=== PATIENT | male | born 1960 | race Caucasian/White ===

== ENCOUNTER → 2021-04-03 10:10 | Outpatient (CLI) | payer MEDICARE, SELFPAY ==
[2021-04-03 20:12] LABS: SARS-CoV-2 RNA PCR Negative
== END ==
PROVIDERS: PCP Family Medicine
DX: R68.89 Other general symptoms and signs (principal); Z20.822 Contact with and (suspected) exposure to COVID-19
CPT/HCPCS: C9803; U0003; U0005

== ENCOUNTER → 2021-08-29 02:41 | Outpatient (CLI) | payer MEDICARE, SELFPAY ==
[2021-08-30 15:56] LABS: SARS-CoV-2 RNA PCR Positive
== END ==
PROVIDERS: PCP Family Medicine; Visit Provider Family Medicine
DX: U07.1 COVID-19 (principal)
CPT/HCPCS: C9803; U0003; U0005

== ENCOUNTER 2024-03-29 07:28 | Emergency (ER) | payer MEDICARE, SELFPAY ==
--- NOTE | ~2024-03-29 | XR_ITS ---
EXAMINATION: XR ankle LT min 3V DATE: 03/29/2024 08:13 INDICATION: Left ankle injury. TECHNIQUE: 4 views of left ankle were obtained. COMPARISON: None. FINDINGS: Bone alignment is normal. No fracture. There is heterotopic ossification distal to medial m alleolus, likely chronic. There is mild midfoot osteoarthritis. There are enthesophytes at the physical therapy aides teacher ior and plantar aspects of calcaneal tuberosity. There is ankle soft tissue swelling. IMPRESSION: 1. Mild midfoot osteoarthritis. Reviewed, dictated and finalized at location A.
--- NOTE | ~2024-03-29 | US_ITS ---
EXAMINATION: US venous doppler [facility] DATE: 03/29/2024 08:29 INDICATION: Left lower limb pain and swelling. TECHNIQUE: Grayscale ultrasound images without and with compression and Doppler ultrasound images of the left lower extremity veins were obtained. COMPARISON: None. FINDINGS: The visualized portions of left common femoral vein, profunda (deep) femoral vein, femoral vein, popl iteal vein, peroneal veins, posterior tibial veins, and greater saphenous vein outflow are patent. Th ere is a hematoma in left calf. IMPRESSION: 1. No deep venous thrombosis. 2. Hematoma in left calf. Reviewed, dictated and finalized at location A.
--- NOTE | ~2024-03-29 | XR_ITS ---
EXAMINATION: XR foot LT min 3V DATE: 03/29/2024 08:13 INDICATION: Left foot injury. TECHNIQUE: 5 views of left foot were obtained. COMPARISON: None. FINDINGS: Bone alignment is normal. There is mild osteoarthritis of first metatarsophalangeal joint a nd some of the interphalangeal joints and midfoot joints. There are enthesophytes at the posterior an d plantar aspects of calcaneal tuberosity. IMPRESSION: 1. Mild polyarticular osteoarthritis. Reviewed, dictated and finalized at location A.
--- NOTE | ~2024-03-29 | XR_ITS ---
EXAMINATION: XR tibia fibula LT 2V DATE: 03/29/2024 08:13 INDICATION: Left lower leg injury. TECHNIQUE: 2 views of left tibia and fibula were obtained. COMPARISON: None. FINDINGS: Bone alignment is normal. No fracture. There is mild left knee osteoarthritis. There is mil d midfoot osteoarthritis. IMPRESSION: 1. Mild particular osteoarthritis. Reviewed, dictated and finalized at location A.
[2024-03-29 07:34] VITALS: BP 166/100; PULSE 97; RESP 20; TEMP 36.6; O2SAT 97
--- NOTE | 2024-03-29 07:57 | ED.FALL ---
HPI - Fall General Chief Complaint: Fall Stated Complaint: fell 4 ft Time Seen by Provider: 03/29/24 07:35 History of Present Illness HPI Narrative: A 63-year-old male presenting to the emergency department after having a ground level fall last week. Patient states he was walking on a wet deck when he slipped on some stairs landing of left-sided injured his left leg. Patient states that initially he did not think he had any rib fractures but did have a hematoma of left hand and on his left leg. Patient states over the course of the last week the bruising has traveled down the leg. Patient does have some bruising to the left hip and bruising to left foot ankle and left lower extremity. Patient has no prior history of DVT does not take any blood thinners. Related Data Home Medications Medication Instructions Recorded Confirmed docusate sodium 250 mg capsule 250 mg PO DAILY 10/03/19 10/10/23 digoxin 250 mcg (0.25 mg) tablet 250 mcg PO DAILY 07/01/21 10/10/23 metoprolol tartrate 100 mg tablet 100 mg PO . q.h.s. 07/01/21 10/10/23 sacubitril 49 mg-valsartan 51 mg 0.5 tablet PO . daily 07/01/21 10/10/23 tablet (Entresto) dapagliflozin propanediol 10 mg 5 mg PO QAM 02/03/22 10/10/23 tablet (Farxiga) famotidine 20 mg tablet 20 mg PO BID 02/03/22 10/10/23 Allergies Allergy/AdvReac Type Severity Reaction Status Date / Time levofloxacin Allergy Unknown Contact Verified 03/29/24 08:00 dermatitis Penicillins Allergy Unknown Contact Verified 03/29/24 08:00 dermatitis Sulfa (Sulfonamide Allergy Unknown Contact Verified 03/29/24 08:00 Antibiotics) dermatitis sulfamethizole Allergy Unknown Contact Verified 03/29/24 08:00 dermatitis sulfamethoxazole Allergy Unknown unknown Verified 03/29/24 08:00 trimethoprim Allergy Unknown Contact Verified 03/29/24 08:00 dermatitis Review of Systems Review of Systems: All systems reviewed & are unremarkable except as noted in HPI and below PMFSH Past Medical History Medical History (Updated 03/29/24 @ 08:39 by Chris Pitts MD) Acute bronchitis Acute non-recurrent maxillary sinusitis BMI 36.0-36.9,adult BMI 37.0-37.9, adult BMI 39.0-39.9,adult Body mass index (BMI) 40.0-44.9, adult (11/30/18) Body mass index (BMI) of 40.1 to 44.9 in adult CHF (congestive heart failure) Chronic anxiety Chronic atrial fibrillation (~05/15/21) Chronic bilateral low back pain with right-sided sciatica Chronic bilateral low back pain without sciatica Chronic constipation COVID-19 (08/26/21) positive test on 08/29/2021 Encounter for prostate cancer screening PSA 0.6 on 02/18/2021. PSA 0.45 on 01/26/2023. Essential hypertension Fibromyalgia Hypogonadism male total testosterone low at 173 on 09/19/2023 through suture gauger. Iron deficiency anemia due to chronic blood loss iron level low at 13 on 02/18/2021 Liver cirrhosis secondary to ZENDEJAS (nonalcoholic steatohepatitis) Nocturia Obesity (BMI 30-39.9) Obesity (BMI 35.0-39.9 without comorbidity) Protein in urine Screening for diabetic retinopathy no retinopathy on 09/22/2022. Tobacco use disorder, continuous 1/2 pack of cigarettes daily Type 2 diabetes mellitus with hyperglycemia (02/18/21) fasting glucose 205 on 02/18/2021 UTI (urinary tract infection) Venous insufficiency of both lower extremities Surgical History Surgical History History of cardiac cath Social History Social History Smoking packs per day: 0.5 Smoking cigarettes per day: 10.0 Years smoked: 30 Smoking pack-years: 15.00 Smoking status: Current every day smoker ( 1/2 of a pack of cigarettes daily) Tobacco type: cigarettes Alcohol intake: never Substance use: never Substance use type: does not use Lack of Transportation: No Lack of Food: Never True Current Housing: I Have Housing Concerned About Future Housing: No Diffi
== END 2024-03-29 08:45 | disposition home or self-care (01) ==
PROVIDERS: Emergency Provider Emergency Medicine; PCP Family Medicine
DX: R60.0 Localized edema (principal); S60.222A Contusion of left hand, initial encounter; S80.12XA Contusion of left lower leg, initial encounter; I48.91 Unspecified atrial fibrillation; F41.9 Anxiety disorder, unspecified; I11.0 Hypertensive heart disease with heart failure; I50.9 Heart failure, unspecified; F17.210 Nicotine dependence, cigarettes, uncomplicated; E11.9 Type 2 diabetes mellitus without complications; Z87.440 Personal history of urinary (tract) infections; W10.9XXA Fall (on) (from) unspecified stairs and steps, initial encounter
CPT/HCPCS: 73590; 73610; 73630; 93971; 99284

== ENCOUNTER 2024-05-04 10:38 | Outpatient (CLI) | payer MEDICARE, SELFPAY ==
[2024-05-04 11:29] LABS: Alanine Aminotransferase 24 U/L (6-50); Albumin Level 4.3 g/dL (3.5-5.1); Alkaline Phosphatase 91 U/L (38-126); Anion Gap 6 mmol/L (4-12); Aspartate Amino Transferase 26 U/L (17-59); Bilirubin,Total 1.2 mg/dL (0.2-1.3); Blood Urea Nitrogen 11 mg/dL (9-20); Calcium 9.4 mg/dL (8.4-10.2); Carbon Dioxide 30 mmol/L (22-30); Chloride 101 mmol/L (98-107); Cholesterol 129 mg/dL (0-200); Estimated Glomerular Filt Rate > 60; Glucose 160 mg/dL (65-110); HDL Direct 39 mg/dL; Potassium 4.1 mmol/L (3.4-5.0); Sodium 137 mmol/L (137-145); Triglycerides 48 mg/dL (<150)
[2024-05-04 11:30] LABS: Add Urine Microscopic? YES; Appearance Urine Clear (Clear); Bacteria Urine None Seen /hpf; Bilirubin Urine Negative (Negative); Blood Urine Negative (Negative); Color Urine Yellow (Yellow); Glucose Urine UA 3+ mg/dL (Negative); Ketones Urine Negative (Negative); Leukocyte Esterase Ur Negative LEU/UL (Negative); Nitrate Urine Negative (Negative); Non Pathogenic Casts 0-2; Protein Urine Trace mg/dL (Negative); RBC Urine 0-2 /hpf (0-2); Specific Grav Ur 1.041 (1.001-1.035); Squamous Epithelial Cell Urine None Seen /hpf (Few); WBC Urine 0-5 /hpf (0-3)
[2024-05-04 11:40] LABS: LDL Cholesterol Direct 75 mg/dL
[2024-05-04 11:58] LABS: Prostate Specific Antigen 1.1 ng/mL (< OR = 4.0)
[2024-05-04 11:59] LABS: MALB Creatinine Ratio 134.8 mg/g (0-30); Microalbumin Urine Random 117.3 mg/L (0-16.7)
[2024-05-04 12:17] LABS: Hemoglobin A1C 7.7 % (<5.7)
[2024-05-08 16:34] LABS: Testosterone Free 105.8 pg/mL (35.0-155.0); Testosterone Total 524 ng/dL (250-1100)
== END 2024-05-04 10:39 | disposition home or self-care (01) ==
LOC: ANHLAB 10:44
PROVIDERS: PCP Family Medicine; Visit Provider Family Medicine
DX: E11.65 Type 2 diabetes mellitus with hyperglycemia (principal); Z12.5 Encounter for screening for malignant neoplasm of prostate; E78.2 Mixed hyperlipidemia
CPT/HCPCS: 36415; 80048; 80061; 80076; 81001; 82043; 83036; 84153; 84402; 84403; G0103